=== PATIENT | female | born 1955 | race Caucasian/White ===

== ENCOUNTER 2016-04-07 14:57 | Emergency (ER) | payer OTHER, MEDICAID ==
[2016-04-07 15:39] VITALS: RESP 18; O2SAT 96
[2016-04-07] MEDS ORDERED: NS 1,000 ML IV ONE (15:48)
[2016-04-07] MEDS ORDERED: ONDANSETRON 4 MG/2 ML VIAL IVP ONE (15:49)
[2016-04-07 16:19] LABS: % IMMATURE GRANULYOCYTES 0.8 % (0.0-1.1); ABSOLUTE IMMATURE GRANULOCYTES 0.06 10^3/uL (0.00-0.10); ADD DIFF? NO; ADD MORPH? NO; ADD SCAN? NO; ATYPICAL LYMPHOCYTE FLAG 10 (0-99); FRAGMENT RBC FLAG 0 (0-99); HEMATOCRIT 34.3 % (38.0-47.0); HEMOGLOBIN 11.6 g/dL (12.6-16.3); LEFT SHIFT FLG 10 (0-99); LIPEMIA HEMOLYSIS FLAG 90 (0-99); MEAN CELL HEMOGLOBIN 28.5 pg (27.9-34.1); MEAN CELL HEMOGLOBIN CONCENTR. 33.8 g/dL (32.4-36.7); MEAN CELL VOLUME 84.3 fL (81.5-99.8); MEAN PLATELET VOLUME 9.4 fL (8.7-11.7); PLATELET CLUMPS FLAG 10 (0-99); PLATELET COUNT 258 10^3/uL (150-400); RED BLOOD CELL COUNT 4.07 10^6/uL (4.18-5.33); RED CELL DISTRIBUTION WIDTH 14.2 % (11.5-15.2)
[2016-04-07 16:33] LABS: ANION GAP 9 mEq/L (8-16); CALCIUM 8.8 mg/dL (8.5-10.4); CARBON DIOXIDE 27 mEq/l (22-31); CHLORIDE 104 mEq/L (97-110); CREATININE 0.8 mg/dL (0.6-1.0); GLOMERULAR FILTRATION RATE > 60; GLUCOSE 165 mg/dL (70-100); SODIUM 140 mEq/L (134-144)
--- NOTE | 2016-04-07 16:34 | UCPHY ---
H & P Patient Type: New Chief Complaint Nursing Narrative: S/P STOMA REVISION SURGERY ON 03/30, PT NOTICED BLOODY 'STICKY" DRAINAGE FROM SITE, CONCERNED FOR INFECTION. DENIES FEVERS Time Seen by Provider: 04/07/16 15:29 HPI/ROS: This patient is sent from her primary care physician[place]an internal medicine physician [place] [facility] [place] for further evaluation of her urostomy stoma site. She had revision of her stoma performed by Dr. vegas at [facility] on March 30 and she complains of what feels like drainage from around the stoma. However the patient is blind so it is difficult for her to assess. She also complained of vomiting intermittently over the past 2 days. She had a total 5 episodes over the past 24 hours. She also complains of pain at the stoma site. She has the impression that there was some bloody, "sticky discharge" last night at the stoma site and she has had to change the stoma dressing more frequently because it is not holding a seal. She has been cleaning it with baby shampoo and salt she was directed by her surgeon. ROS: No high fevers. She reports no other constitutional symptoms. She reports a mild headache. She has cold sweats which she admits may be attributable to her diabetes insipidus. She has had increased urine output recently. She also reports increased diaphoresis. Pulmonary: No complaints GI : No abdominal pain Source: Patient Exam Limitations: No limitations - Medical/Surgical History Other PMH: INSIPIDUS DIABETES, TYPE 1 DIABETES - INSULIN PUMP, GERD, HYPOTHYROIDISM, INSOMNIA, OSTEOPOROSIS, DVT, INACTIVE TB, INTERSTITIAL LUNG DX, ANEMIA, [place] 1995, SPINAL CORD, TBI, HTN, GERD, PUD, LEGALLY BLIND - Family History Significant Family History: No pertinent family hx - Social History Smoking Status: Former smoker Alcohol Use: None Drug Use: None - Physical Exam Exam: General Appearance: Alert, no distress. Eyes: Pupils equal and round no pallor or injection. Patient is legally blind single only shadows in light. ENT, Mouth: Mucous membranes moist. Respiratory: There are no retractions, lungs are clear to auscultation. Cardiovascular: Regular rate and rhythm. Gastrointestinal: Abdomen is soft and nontender, no masses, bowel sounds normal. She has a healthy-appearing urostomy in the right lower quadrant with pink tissue that is well perfused. There is no purulent drainage. There is no surrounding erythema. No significant tenderness. There is a mild area of erythema and scaly dry skin to the inferior edge of the surgical incision with minimal tenderness but no fluctuance. This appears consistent with mild impetigo. Neurological: Alert with no focal deficits Skin: Warm and dry, no rashes. Extremities are symmetrical, full range of motion. Psychiatric: Mood and affect normal DIFFERENTIAL DIAGNOSIS: After history and physical exam differential diagnosis was considered for mild wound impetigo or cellulitis. Rule out electrolyte abnormalities from vomiting or evidence of deeper infection Constitutional: Initial Vital Signs Temperature (C) 37.1 C 04/07/16 15:32 Heart Rate 76 04/07/16 15:32 Respiratory Rate 18 04/07/16 15:32 Blood Pressure 145/62 H 04/07/16 15:32 O2 Sat (%) 96 04/07/16 15:32 O2 Delivery Mode Room Air Allergies/Adverse Reactions: acetaminophen [From Tylenol] Allergy (Verified 04/07/16 15:31) aspirin Allergy (Verified 04/07/16 15:31) codeine Allergy (Verified 04/07/16 15:31) diphenhydramine HCl [From Benadryl] Allergy (Verified 04/07/16 15:31) erythromycin base Allergy (Verified 04/07/16 15:31) gluten Allergy (Verified 04/07/16 15:31) iodine Allergy (Verified 04/07/16 15:31) ketorolac tromethamine [From Toradol] Allergy (Verified 04/07/16 15:31) NSAIDS (Non-Steroidal Anti-Inflamma Allergy (Verified 04/07/16 15:31) Penicillins Allergy (Verified 04/07/16 15:31) antibiotics Allergy (Uncoded 04/07/16 15:31) Home Medications: Medication Instructions Recorded Apidra 04/07/16 Baclofen 04/07/16 Desmopressin 10 Mcg/0.1 ml Spr 04/07/16 Hydrocortisone 04/07/16 Keppra 500 mg (*) 04/07/16 Levothyroxine 04/07/16 Lisinopril 04/07/16 Mupirocin Calcium [Bactroban] 1 inch TP BID #15 cream..g. 04/07/16 Omeprazole 04/07/16 Temazepam 04/07/16 Zometa 04/07/16 traMADol [Ultram 50 mg (*)] 50 - 100 mg PO Q6 PRN #20 tab 04/07/16 Medical Decision Making ED Course/Re-evaluation: CBC is normal. Electrolytes normal exception of a glucose of 165. Counseled patient regarding these things. Removed her stomach dressing to evaluate the stoma and our nurse reapplied a dressing. On arrival it is noted that the original placement of the stoma dressing by the patient is off center so the part of the ileostomy/urostomy site is covered by the dressing so that it is not symmetrically placed and I think this may be contributing to the leaking. This is understandable given the patient is blind. Our nurse placed the stoma dressing in the appropriate position. I counseled the patient regarding her wound and treatment plan. Discussion: Patient appears clinically well without concerning findings except minimal scaly erythema lower border of her surgical incision that appears to be mild impetigo type infection will treat with Bactroban - Data Points Laboratory Results: Laboratory Results 04/07/16 16:07 04/07/16 16:07 Medications Given: Discontinued Medications Sodium Chloride (Ns) 1,000 mls @ 0 mls/hr IV ONCE ONE PRN Reason: Wide Open Stop: 04/07/16 15:49 Last Admin: 04/07/16 16:00 Dose: 1,000 mls Ondansetron HCl (Zofran) 4 mg IVP EDNOW ONE Stop: 04/07/16 15:50 Last Admin: 04/07/16 16:00 Dose: 4 mg Departure - Departure Disposition: Home, Routine, Self-Care Clinical Impression: Postoperative pain, Vomiting Condition: Good Instructions: Acute Nausea and Vomiting (ED) Additional Instructions: Diagnoses: 1. Vomiting 2. Postoperative pain Your CBC and basic metabolic panel are normal today with exception of mild elevated glucose to 165. Your stoma looks healthy today. Plan: Continue caring for your stoma. Apply Bactroban ointment to the lower part of the surgical wound 2 times a day for 7 days Try tramadol for pain control. Take her Zofran if needed for nausea Follow up with his surgeon for any ongoing symptoms Go to the emergency department for any significant worsening despite the treatment plan Referrals: Ayaz Ortiz MD [Primary Care Provider] - As per Instructions Prescriptions: Mupirocin Calcium [Bactroban] 1 inch TP BID #15 cream..g. traMADol [Ultram 50 mg (*)] 50 - 100 mg PO Q6 PRN #20 tab PRN Reason: surgical pain - PQRS PQRS Measurement: NA
[2016-04-07 16:37] VITALS: BP 141/79; PULSE 69; TEMP 98.6
== END 2016-04-07 17:27 | disposition home or self-care (01) ==
LOC: CED 14:57
DX: R11.10 Vomiting, unspecified (principal); G89.18 Other acute postprocedural pain; Z93.6 Other artificial openings of urinary tract status; E10.9 Type 1 diabetes mellitus without complications; Z87.891 Personal history of nicotine dependence
CPT/HCPCS: 96361; 96374; G0463; J2405; 80048-PO; 85025-PO